=== PATIENT | male | born 1995 | race Caucasian/White ===

== ENCOUNTER → 2020-09-09 | Outpatient (CLI) | payer SELFPAY | LOC: M LABSMTC 11:47 | PROVIDERS: ATTEND Pediatrics | DX: Z20.828 Contact with and (suspected) exposure to other viral communicable diseases (principal) ==

== ENCOUNTER → 2020-09-20 | Outpatient (CLI) | payer SELFPAY | LOC: M LABSMTC 11:18 | PROVIDERS: ATTEND Pediatrics | DX: Z20.828 Contact with and (suspected) exposure to other viral communicable diseases (principal) ==

== ENCOUNTER → 2020-10-01 | Outpatient (CLI) | payer SELFPAY | LOC: M LABSMTC 12:26 | PROVIDERS: ATTEND Pediatrics | DX: Z20.822 Contact with and (suspected) exposure to COVID-19 (principal) ==

== ENCOUNTER → 2021-03-12 | Outpatient (CLI) | payer SELFPAY | LOC: M LABSMTC 11:22 | PROVIDERS: ATTEND Pediatrics | DX: Z20.822 Contact with and (suspected) exposure to COVID-19 (principal) ==

== ENCOUNTER 2022-01-07 12:18 | Emergency (ER) | payer OTHER, SELFPAY ==
[~2022-01-07] VITALS: Ht 188 cm; Wt 107.7 kg
[2022-01-07 13:01] LABS: BASO # 0.1 10^3/uL (0.0-0.2); BASO % 0.7 % (0.0-1.0); EOS % 0.4 % (0.0-3.0); HEMATOCRIT 39.7 % (42.0-52.0); HEMOGLOBIN 14.2 g/dl (13.5-17.5); LYMPH # 0.2 10^3/uL (1.5-5.0); LYMPH % 3.2 % (24.0-44.0); MEAN CORPUSCULAR HEMOGLOBIN 29.8 pg (27.0-33.0); MEAN CORPUSCULAR HGB CONC 35.8 g/dl (32.0-36.5); MEAN CORPUSCULAR VOLUME 83.4 fl (80.0-96.0); MONO # 0.6 10^3/uL (0.0-0.8); MONO % 7.9 % (2.0-8.0); NEUTROPHILS # 6.5 10^3/uL (1.5-8.5); NEUTROPHILS % 87.4 % (36.0-66.0); PLATELET COUNT, AUTOMATED 158 10^3/uL (150-450); RED BLOOD COUNT 4.76 10^6/uL (4.30-6.10); WHITE BLOOD COUNT 7.5 10^3/uL (4.0-10.0)
[2022-01-07 13:30] LABS: BLOOD UREA NITROGEN 11 MG/DL (7-18); CALCIUM LEVEL 9.1 MG/DL (8.5-10.1); CARBON DIOXIDE LEVEL 29 MEQ/L (21-32); CHLORIDE LEVEL 108 MEQ/L (98-107); CREATININE FOR GFR 1.12 MG/DL (0.70-1.30); GLOMERULAR FILTRATION RATE > 60.0 (>60); GLUCOSE, FASTING 91 MG/DL (70-100); SODIUM LEVEL 140 MEQ/L (136-145)
[2022-01-07 13:40] LABS: RSV AMPLIFICATION NEGATIVE (NEGATIVE)
[2022-01-07] MEDS ORDERED: KETOROLAC 30 MG/ML 1ML VIAL IV ONE (14:20)
[2022-01-07] MEDS ORDERED: NS 1,000 ML IV ONE (14:20)
[2022-01-07 14:52] LABS: MAGNESIUM LEVEL 1.6 MG/DL (1.8-2.4)
[2022-01-07] MEDS ORDERED: NIRMATRELVIR/RITONAVIR CO-PACK (EMERGENCY USE AUTH) PO SCH ×3 (15:00→21:00)
[2022-01-07] MEDS ORDERED: ACETAMINOPHEN TAB 650MG DOSE (2X325MG) PO ONE (15:00)
[2022-01-07] MEDS ORDERED: MAG SULF 1GM/100ML (MAG RUN) 1 GM in IV 1 EA IV ONE (15:00)
[2022-01-07 16:34] VITALS: BP 107/50
== END 2022-01-07 17:26 | disposition home or self-care (01) ==
LOC: M ED 12:18 → EDBD 12:18 → M ED 17:26
DX: U07.1 COVID-19 (principal); R00.2 Palpitations; E83.42 Hypomagnesemia
CPT/HCPCS: 71045; 80048; 83735; 85025; 87631; 93005; 96361; 96365; 96366; 96375; 99284; J1885; J3475